=== PATIENT | female | born 1970 | race Caucasian/White ===

== ENCOUNTER → 2022-04-30 | Outpatient (CLI) | payer MEDICAID | END | disposition home or self-care (01) | LOC: COVID19 10:28 | PROVIDERS: ATTEND Internal Medicine | DX: Z20.822 Contact with and (suspected) exposure to COVID-19 (principal) ==

== ENCOUNTER → 2022-05-11 | Outpatient (CLI) | payer MEDICAID ==
[2022-05-11 11:57] LABS: BASO % 0.4 % (0.0-1.0); EOS # 0.1 10*3/uL (0.0-0.4); EOS % 0.6 % (1.0-4.0); HEMATOCRIT 44.5 % (37.0-47.0); LYMPH # 2.4 10*3/uL (1.3-4.4); LYMPH % 30.2 % (27.0-41.0); MEAN CELL VOLUME 82.6 fl (81.0-99.0); MEAN CORPUSCULAR HGB 25.4 pg (27.0-31.0); MEAN CORPUSCULAR HGB CONC 30.8 g/dl (33.0-37.0); MEAN PLATELET VOLUME 10.8 fl (9.6-12.3); MONO # 0.5 10*3/uL (0.1-1.0); MONO % 6.9 % (3.0-9.0); NEUT # 4.8 10*3/uL (2.3-7.9); NEUT % 61.6 % (47.0-73.0); PLATELET COUNT AUTOMATED 255 10*3/uL (130-400); RED BLOOD COUNT 5.39 10*6/uL (4.10-5.10); WHITE BLOOD COUNT 7.8 10*3/uL (4.8-10.8)
[2022-05-11 12:20] LABS: BUN 7 mg/dl (7-24); CHLORIDE 103 mmol/L (98-107); CHOLESTEROL 263 mg/dL (<200); CREATININE 0.58 mg/dL (0.55-1.02); FREE T4 1.22 ng/dl (0.76-1.46); POTASSIUM 4.7 mmol/L (3.5-5.1); SGOT/AST 17 IU/L (3-35); SGPT/ALT 35 U/L (12-78); SODIUM 136 mmol/L (136-145); TOTAL PROTEIN 7.7 gm/dL (6.4-8.2); TRIGLYCERIDES 420 mg/dl (<150)
[2022-05-11 12:25] LABS: ALKALINE PHOSPHATASE 144 U/L (45-117)
[2022-05-12 10:07] LABS: CREATININE,URINE 30.6 mg/dL (Not Estab.)
== END | disposition home or self-care (01) ==
LOC: LAB 11:16
PROVIDERS: ATTEND Internal Medicine
DX: E11.43 Type 2 diabetes mellitus with diabetic autonomic (poly)neuropathy (principal); I50.9 Heart failure, unspecified

== ENCOUNTER 2022-05-20 18:51 | Inpatient (IN) | payer MEDICAID ==
[~2022-05-20] VITALS: Ht 154.9 cm; Wt 112.6 kg
[2022-05-20 19:21] VITALS: BP 101/57
[2022-05-20] MEDS ORDERED: FARXIGA10 M1 PO (20:14)
[2022-05-20] MEDS ORDERED: LISINOPRIL10 M1 PO (20:14)
[2022-05-20] MEDS ORDERED: FUROSEMIDE40 MG PO (20:14)
[2022-05-20] MEDS ORDERED: ALDACTONE25 MG PO (20:14)
[2022-05-20] MEDS ORDERED: MIRTAZAPINE15 M2 PO (20:15)
[2022-05-20] MEDS ORDERED: Lopressor25 MG PO (20:15)
[2022-05-20] MEDS ORDERED: METFORMIN HYD1000 MG PO (20:15)
[2022-05-20] MEDS ORDERED: MONTELUKAST SOD10 MG PO (20:16)
[2022-05-20 21:36] LABS: BILIRUBIN Negative (Negative); BLOOD Negative (Negative); CLARITY Clear (Clear); COLOR Yellow (Yellow); GLUCOSE 3+ (Negative); KETONE Negative (Negative); LEUKO ESTERASE Negative (Negative); NITRITE Negative (Negative); SPECIFIC GRAVITY >= 1.030 (1.001-1.030); UROBILINOGEN 0.2 E.U./dl (0.0-1.0)
[2022-05-20 21:53] LABS: RBC 0-2 rbc/hpf (0-2)
[2022-05-20 22:12] LABS: BASO % 0.3 % (0.0-1.0); EOS % 0.2 % (1.0-4.0); HEMATOCRIT 43.7 % (37.0-47.0); LYMPH # 3.8 10*3/uL (1.3-4.4); LYMPH % 30.6 % (27.0-41.0); MEAN CELL VOLUME 79.7 fl (81.0-99.0); MEAN CORPUSCULAR HGB 25.7 pg (27.0-31.0); MEAN CORPUSCULAR HGB CONC 32.3 g/dl (33.0-37.0); MEAN PLATELET VOLUME 10.6 fl (9.6-12.3); MONO # 0.9 10*3/uL (0.1-1.0); MONO % 7.1 % (3.0-9.0); NEUT # 7.7 10*3/uL (2.3-7.9); NEUT % 61.6 % (47.0-73.0); PLATELET COUNT AUTOMATED 269 10*3/uL (130-400); RED BLOOD COUNT 5.48 10*6/uL (4.10-5.10); RED CELL DISTRI WIDTH 14.9 % (0-14.5); WHITE BLOOD COUNT 12.5 10*3/uL (4.8-10.8)
[2022-05-20 22:48] LABS: BUN 18 mg/dl (7-24); CHLORIDE 100 mmol/L (98-107); CREATININE 1.03 mg/dL (0.55-1.02); POTASSIUM 3.3 mmol/L (3.5-5.1); SODIUM 134 mmol/L (136-145)
[2022-05-21 02:23] VITALS: BP 115/76
[2022-05-21 06:23] VITALS: BP 126/69
[2022-05-21 11:00] VITALS: BP 137/59
[2022-05-21 12:00] VITALS: BP 137/59
[2022-05-21 16:30] VITALS: BP 122/41
[2022-05-21 20:00] VITALS: BP 133/63
[2022-05-22] VITALS: BP 149/69
[2022-05-22 05:55] LABS: BUN 11 mg/dl (7-24); CHLORIDE 107 mmol/L (98-107); CREATININE 0.55 mg/dL (0.55-1.02); POTASSIUM 3.6 mmol/L (3.5-5.1); SODIUM 137 mmol/L (136-145)
[2022-05-22 06:11] LABS: BASO % 0.4 % (0.0-1.0); EOS # 0.1 10*3/uL (0.0-0.4); EOS % 0.8 % (1.0-4.0); HEMATOCRIT 44.6 % (37.0-47.0); LYMPH # 3.3 10*3/uL (1.3-4.4); LYMPH % 36.9 % (27.0-41.0); MEAN CELL VOLUME 82.7 fl (81.0-99.0); MEAN CORPUSCULAR HGB 26.2 pg (27.0-31.0); MEAN CORPUSCULAR HGB CONC 31.6 g/dl (33.0-37.0); MEAN PLATELET VOLUME 11.3 fl (9.6-12.3); MONO # 0.8 10*3/uL (0.1-1.0); MONO % 8.5 % (3.0-9.0); NEUT # 4.8 10*3/uL (2.3-7.9); NEUT % 53.2 % (47.0-73.0); PLATELET COUNT AUTOMATED 231 10*3/uL (130-400); RED BLOOD COUNT 5.39 10*6/uL (4.10-5.10)
[2022-05-22 08:00] VITALS: BP 143/73
[2022-05-22] MEDS ORDERED: POTASSIUM CHLO20 ME4 PO (08:41)
[2022-05-22] MEDS ORDERED: LANTUS SOL100 UNIT/1 SC (08:41)
[2022-05-22 12:00] VITALS: BP 152/75
== END 2022-05-22 13:36 | disposition home or self-care (01) | DRG 204 ==
LOC: ED 18:51 → 5E 05-21 05:20 → EDHOLD 05-21 05:20 → 5E 05-21 09:24
PROVIDERS: Emergency Medicine; Student in an Organized Health Care Education/Training Program; ADMIT Internal Medicine; ATTEND Internal Medicine
DX: R55 Syncope and collapse (principal); E87.1 Hypo-osmolality and hyponatremia; E11.9 Type 2 diabetes mellitus without complications; N17.0 Acute kidney failure with tubular necrosis; I50.9 Heart failure, unspecified; I11.0 Hypertensive heart disease with heart failure; E87.6 Hypokalemia; G47.33 Obstructive sleep apnea (adult) (pediatric); Z90.49 Acquired absence of other specified parts of digestive tract

== ENCOUNTER → 2022-06-30 | Outpatient (CLI) | payer MEDICAID ==
[~2022-06-30] MED LIST: ALDACTONE25 MG PO; FARXIGA10 M1 PO; FUROSEMIDE40 MG PO; LANTUS SOL100 UNIT/1 SC; LISINOPRIL10 M1 PO; Lopressor25 MG PO; METFORMIN HYD1000 MG PO; MIRTAZAPINE15 M2 PO; MONTELUKAST SOD10 MG PO; POTASSIUM CHLO20 ME4 PO
== END | disposition home or self-care (01) ==
LOC: MAMMO 00:46
PROVIDERS: ATTEND Internal Medicine Nephrology
DX: Z12.31 Encounter for screening mammogram for malignant neoplasm of breast (principal)

== ENCOUNTER → 2023-08-01 | Outpatient (CLI) | payer OTHER | END | disposition home or self-care (01) | LOC: MAMMO 00:15 | PROVIDERS: ATTEND Internal Medicine | DX: Z12.31 Encounter for screening mammogram for malignant neoplasm of breast (principal) ==

== ENCOUNTER 2023-11-11 01:04 | Emergency (ER) | payer OTHER ==
[~2023-11-11] VITALS: Ht 157.4 cm; Wt 116.6 kg
[2023-11-11] MEDS ORDERED: FARXIGA10 M1 PO (01:27)
[2023-11-11] MEDS ORDERED: ALDACTONE25 MG PO (01:27)
[2023-11-11] MEDS ORDERED: FUROSEMIDE40 MG PO (01:28)
[2023-11-11] MEDS ORDERED: LIPITOR40 MG PO (01:28)
[2023-11-11] MEDS ORDERED: GUAIFENESIN200 MG PO (02:33)
== END 2023-11-11 02:43 | disposition home or self-care (01) ==
LOC: ED 01:04
DX: J10.1 Influenza due to other identified influenza virus with other respiratory manifestations (principal); E11.9 Type 2 diabetes mellitus without complications; I11.0 Hypertensive heart disease with heart failure; I50.9 Heart failure, unspecified; Z90.89 Acquired absence of other organs; Z90.49 Acquired absence of other specified parts of digestive tract; Z98.51 Tubal ligation status; Z98.890 Other specified postprocedural states; Z20.822 Contact with and (suspected) exposure to COVID-19

== ENCOUNTER → 2023-12-22 | Outpatient (CLI) | payer OTHER ==
[~2023-12-22] MED LIST changes: +GUAIFENESIN200 MG PO; +LIPITOR40 MG PO
== END | disposition home or self-care (01) ==
LOC: CT 00:21
PROVIDERS: ATTEND Internal Medicine Critical Care Medicine
DX: R91.8 Other nonspecific abnormal finding of lung field (principal); I25.10 Atherosclerotic heart disease of native coronary artery without angina pectoris; G47.33 Obstructive sleep apnea (adult) (pediatric); J30.89 Other allergic rhinitis; R05.1 Acute cough; I51.7 Cardiomegaly; K76.0 Fatty (change of) liver, not elsewhere classified; Z68.42 Body mass index [BMI] 45.0-49.9, adult; R16.0 Hepatomegaly, not elsewhere classified; Z87.891 Personal history of nicotine dependence; Z90.49 Acquired absence of other specified parts of digestive tract

== ENCOUNTER 2024-01-21 18:05 | Emergency (ER) | payer BC ==
[2024-01-21] MEDS ORDERED: ACETAMINOPHEN 325 MG TAB PO ONE (18:15)
== END 2024-01-21 19:04 | disposition home or self-care (01) ==
LOC: ED 18:05
DX: S63.501A Unspecified sprain of right wrist, initial encounter (principal); M54.50 Low back pain, unspecified; Z79.899 Other long term (current) drug therapy; Z90.89 Acquired absence of other organs; Z90.49 Acquired absence of other specified parts of digestive tract; Z98.51 Tubal ligation status; Z98.890 Other specified postprocedural states; W01.0XXA Fall on same level from slipping, tripping and stumbling without subsequent striking against object, initial encounter; Y93.89 Activity, other specified; Y92.89 Other specified places as the place of occurrence of the external cause; Y99.8 Other external cause status

== ENCOUNTER → 2024-07-05 | Outpatient (CLI) | payer OTHER | END | disposition home or self-care (01) | LOC: CT 00:36 | PROVIDERS: ATTEND Internal Medicine Critical Care Medicine | DX: R91.8 Other nonspecific abnormal finding of lung field (principal); G47.33 Obstructive sleep apnea (adult) (pediatric); I25.10 Atherosclerotic heart disease of native coronary artery without angina pectoris; J30.89 Other allergic rhinitis; Z87.891 Personal history of nicotine dependence; Z68.42 Body mass index [BMI] 45.0-49.9, adult ==

== ENCOUNTER → 2024-09-24 | Outpatient (CLI) | payer OTHER | END | disposition home or self-care (01) | LOC: MAMMO 01:32 | PROVIDERS: ATTEND Internal Medicine | DX: Z12.31 Encounter for screening mammogram for malignant neoplasm of breast (principal); R92.323 Mammographic fibroglandular density, bilateral breasts ==

== ENCOUNTER → 2025-04-12 | Outpatient (CLI) | payer OTHER ==
[2025-04-12 12:06] LABS: BASO % 0.3 % (0.0-1.0); EOS # 0.1 10*3/uL (0.0-0.4); EOS % 1.5 % (1.0-4.0); HEMATOCRIT 41.4 % (37.0-47.0); MEAN CELL VOLUME 86.1 fl (81.0-99.0); MEAN CORPUSCULAR HGB 27.4 pg (27.0-31.0); MEAN CORPUSCULAR HGB CONC 31.9 g/dl (33.0-37.0); MEAN PLATELET VOLUME 10.3 fl (9.6-12.3); MONO # 0.6 10*3/uL (0.1-1.0); MONO % 7.2 % (3.0-9.0); NEUT # 4.5 10*3/uL (2.3-7.9); NEUT % 57.8 % (47.0-73.0); PLATELET COUNT AUTOMATED 229 10*3/uL (130-400); RED BLOOD COUNT 4.81 10*6/uL (4.10-5.10); RED CELL DISTRI WIDTH 14.8 % (0-14.5); WHITE BLOOD COUNT 7.8 10*3/uL (4.8-10.8)
[2025-04-12 12:30] LABS: ALKALINE PHOSPHATASE 69 U/L (46-116); BUN 8 mg/dl (9-23); CHLORIDE 105 mmol/L (98-107); FREE T4 1.27 ng/dl (0.89-1.76); POTASSIUM 4.2 mmol/L (3.4-5.1); SGPT/ALT 20 U/L (5-49); TOTAL PROTEIN 6.9 gm/dL (6.0-8.0)
== END | disposition home or self-care (01) ==
LOC: LAB 11:30
PROVIDERS: ATTEND Internal Medicine
DX: E11.43 Type 2 diabetes mellitus with diabetic autonomic (poly)neuropathy (principal); I50.9 Heart failure, unspecified; R53.1 Weakness; R53.83 Other fatigue

== ENCOUNTER → 2025-07-18 | Outpatient (CLI) | payer OTHER | END | disposition home or self-care (01) | LOC: CT 00:49 | PROVIDERS: ATTEND Internal Medicine Critical Care Medicine | DX: Z12.2 Encounter for screening for malignant neoplasm of respiratory organs (principal); R91.8 Other nonspecific abnormal finding of lung field; I25.10 Atherosclerotic heart disease of native coronary artery without angina pectoris; Z87.891 Personal history of nicotine dependence ==

== ENCOUNTER → 2025-09-26 | Outpatient (CLI) | payer OTHER | END | disposition home or self-care (01) | LOC: MAMMO 01:18 | PROVIDERS: ATTEND Internal Medicine | DX: Z12.31 Encounter for screening mammogram for malignant neoplasm of breast (principal); R92.313 Mammographic fatty tissue density, bilateral breasts; R92.1 Mammographic calcification found on diagnostic imaging of breast ==